=== PATIENT | male | born 1960 | race Caucasian/White ===

== ENCOUNTER 2017-01-23 20:11 | Inpatient (IN) | payer MEDICAID, OTHER ==
[2017-01-23 20:11] VITALS: O2SAT 100
[~2017-01-23 20:11] MED LIST: PROPOFOL 200 MG/20 ML AMP IV ONE; SODIUM CHLOR 0.9% 1000 ML INJ 3,000 ML IV ONE
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
[2017-01-23 20:37] LABS: AUTOMATED NEUTROPHIL # 7.3 TH/MM3 (1.8-7.7); BASOPHIL # 0.1 TH/MM3 (0-0.2); BASOPHIL % 0.5 % (0.0-2.0); EOSINOPHIL # 0.2 TH/MM3 (0-0.4); EOSINOPHIL % 1.4 % (0.0-4.0); HEMATOCRIT 41.4 % (39.0-51.0); HEMO FLAGS DIFF FINAL; LYMPH % 20.3 % (9.0-44.0); LYMPHOCYTE # 2.1 TH/MM3 (1.0-4.8); MEAN CORPUSCULAR HEMOGLOBIN 28.8 PG (27.0-34.0); MEAN CORPUSCULAR HGB CONC 33.9 % (32.0-36.0); MONO % 8.5 % (0.0-8.0); NEUT % 69.3 % (16.0-70.0); PLATELET COUNT 215 TH/MM3 (150-450); RED BLOOD COUNT 4.86 MIL/MM3 (4.50-5.90); RED CELL DISTRIBUTION WIDTH 14.4 % (11.6-17.2); WHITE BLOOD COUNT 10.5 TH/MM3 (4.0-11.0)
[2017-01-23 20:40] VITALS: O2SAT 100
[2017-01-23 20:40] LABS: I-STAT POTASSIUM 2.7 MMOL/L (3.5-4.9); I-STAT SODIUM 141 MMOL/L (138-146)
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
[2017-01-23 20:45] VITALS: BP 131/94; PULSE 82; RESP 23; O2SAT 100; O2SAT 95
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
[2017-01-23 20:49] LABS: APTT (PATIENT) 24.3 SEC (24.3-30.1); INTERNATIONAL NORMALIZED RATIO 1.1 RATIO; PROTHROMBIN TIME - PATIENT 11.8 SEC (9.8-11.6)
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
[2017-01-23] MEDS ORDERED: THROMBIN (TOPICAL) 5,000 UNIT VIAL ONE ×2 (20:55→21:14)
[2017-01-23] MEDS ORDERED: GENTAMICIN SULFATE 80 MG/2 ML VIAL ONE (20:55)
[2017-01-23] MEDS ORDERED: GELFOAM SIZE 100 ONE (20:55)
[2017-01-23] MEDS ORDERED: LIDOCAINE 1%/EPINEPHrine 1:100,000 SOLN 20 ML VIAL ONE (20:56)
[2017-01-23] MEDS ORDERED: PROPOFOL 1000 MG/100 ML INJ 100 ML ONE (20:59)
[2017-01-23] MEDS ORDERED: MANNITOL INJ 50 ML ONE (20:59)
[2017-01-23 21:00] VITALS: BP 142/104; PULSE 90; RESP 31; TEMP 95.7; O2SAT 100
[2017-01-23 21:10] VITALS: O2SAT 100
[2017-01-23] MEDS ORDERED: SODIUM CHLOR 0.9% 1000 ML INJ 1,000 ML IV SCH (21:15)
[2017-01-23] MEDS ORDERED: MISCELLANEOUS NURSING INFORMATION XX SCH (21:15)
[2017-01-23] MEDS ORDERED: CHLORHEXIDINE GLUCONATE 2 % 1 PACK (2 CLOTHS) TOP PRN (21:15)
[2017-01-23] MEDS ORDERED: ENALAPRILAT 1.25 MG/ML VIAL IV PRN (21:15)
[2017-01-23] MEDS ORDERED: SODIUM CHLORIDE 0.9% FLUSH 10 ML FLUSH IV FLUSH PRN ×2 (21:15→21:30)
[2017-01-23] MEDS ORDERED: ceFAZolin INJ 1,000 MG VIAL ONE (21:21)
[2017-01-23] MEDS ORDERED: PROPOFOL 1000 MG/100 ML INJ 100 ML IV SCH (21:30)
[2017-01-23] MEDS ORDERED: DOPamine INJ PREMIX 500 ML IV SCH (21:30)
[2017-01-23] MEDS ORDERED: LORazepam 2 MG/ML VIAL IVP PRN (21:30)
[2017-01-23] MEDS ORDERED: MAGNESIUM SULFATE INJ 2 GM in SODIUM CHLORIDE 0.9% INJ 100 ML IV PRN (21:30)
[2017-01-23] MEDS ORDERED: ONDANSETRON HCL 4 MG/2 ML VIAL IV PRN (21:30)
[2017-01-23] MEDS ORDERED: TERBUTALINE INJ 1 MG/ML AMP SQ PRN (21:30)
[2017-01-23] MEDS ORDERED: ACETAMINOPHEN 650 MG/20.3 ML UDC NG PRN (21:30)
[2017-01-23] MEDS ORDERED: LABETALOL HCL 100 MG/20 ML VIAL IV PRN (21:30)
[2017-01-23] MEDS ORDERED: cloNIDine HCL 0.1 MG TAB PO PRN (21:30)
[2017-01-23] MEDS ORDERED: CALCIUM GLUCONATE INJ 1 GM in SODIUM CHLORIDE 0.9% INJ 100 ML IV PRN (21:30)
[2017-01-23] MEDS ORDERED: fentaNYL CITRATE 250 MCG/5 ML AMP ONE (21:34)
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
[2017-01-23] MEDS ORDERED: MAGNESIUM SULFATE INJ 2 GM in SODIUM CHLORIDE 0.9% INJ 96 ML IV PRN (22:00)
[2017-01-23] MEDS ORDERED: MAGNESIUM OXIDE 400 MG TAB PO PRN (22:00)
[2017-01-23] MEDS ORDERED: MAGNESIUM SULFATE INJ 4 GM in SODIUM CHLORIDE 0.9% INJ 92 ML IV PRN (22:00)
[2017-01-23] MEDS ORDERED: POTASSIUM CHLOR 20 MEQ PREMIX 100 ML IV PRN (22:00)
[2017-01-23] MEDS ORDERED: POTASSIUM CHLOR 40 MEQ PREMIX 100 ML IV PRN ×2 (22:00)
[2017-01-23] MEDS ORDERED: POTASSIUM CHLORIDE 25 MEQ EFFERVESCENT TAB PO PRN (22:00)
[2017-01-23] MEDS ORDERED: POTASSIUM PHOSPHATE MONOBASIC 500 MG TAB PO PRN (22:00)
[2017-01-23] MEDS ORDERED: POTASSIUM PHOSPHATE INJ 30 MMOL in SODIUM CHLOR 0.9% 250 ML INJ 250 ML IV PRN (22:00)
[2017-01-23] MEDS ORDERED: GLUCAGON 1 MG/ML VIAL OTHER PRN (22:00)
[2017-01-23] MEDS ORDERED: POTASSIUM PHOSPHATE MONOBASIC 500 MG TAB PO/TUBE PRN (22:00)
[2017-01-23] MEDS ORDERED: SODIUM PHOSPHATE INJ 30 MMOL in SODIUM CHLOR 0.9% 250 ML INJ 240 ML IV PRN (22:00)
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
[2017-01-23 22:22] LABS: BLOOD GAS BASE EXCESS -5.3 mmol/L (-2-2); BLOOD GAS CARBOXYHEMOGLOBIN 4.3 % (0-4); BLOOD GAS HCO3 19 mmol/L (22-26); BLOOD GAS METHEMOGLOBIN 1.3 % (0-2); BLOOD GAS O2 HGB SATURATION 93 % (90-100); BLOOD GAS OXYGEN CONTENT 15.1 Vol % (12.0-20.0); BLOOD GAS PCO2 35 mmHg (38-42); BLOOD GAS PO2 130 mmHg (61-120); BLOOD GAS TOTAL HGB 11.4 G/DL (12.0-16.0); TEMP CORR TO 98.6
[2017-01-23 22:23] LABS: CRITICAL VALUE NO; FIO2 60 %; OXYGEN DEVICE VENTILATOR; VENT SETTINGS OR SETTINGS
[2017-01-23 22:24] LABS: DRAW SITE ALINE; STAT YES; ULNAR PULSE PRESENT
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
[2017-01-24] VITALS (17 sets, daily range): BP systolic 104–149; BP diastolic 64–85; PULSE 86–109; RESP 16–34; TEMP 96.4–100.6; O2SAT 98–100
[2017-01-24 00:05] LABS: FREE T3 2.92 PG/ML (2.18-3.98); FREE T4 1.37 NG/DL (0.76-1.46)
[2017-01-24 00:57] LABS: BLOOD GAS BASE EXCESS -4.9 mmol/L (-2-2); BLOOD GAS CARBOXYHEMOGLOBIN 1.8 % (0-4); BLOOD GAS HCO3 20 mmol/L (22-26); BLOOD GAS METHEMOGLOBIN 1.1 % (0-2); BLOOD GAS O2 HGB SATURATION 97 % (90-100); BLOOD GAS OXYGEN CONTENT 17.2 Vol % (12.0-20.0); BLOOD GAS PCO2 39 mmHg (38-42); BLOOD GAS PO2 350 mmHg (61-120); CRITICAL VALUE NO; DRAW SITE ART LINE; FIO2 100 %; OXYGEN DEVICE VENTILATOR; STAT NO; TEMP CORR TO 98.6; VENT SETTINGS PRVC/AC
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
[2017-01-24 01:34] LABS: AMPHETAMINE, URINE NEG (NEG); BARBITURATES, URINE NEG (NEG); COCAINE, URINE NEG (NEG)
[2017-01-24 01:38] LABS: BLOOD, URINE NEG (NEG); COMMENT (UR) CATH-CULT NOT IND; CULTURE IF INDICATED CATH CULTURE NOT IND; GLUCOSE,URINE TRACE mg/dL (NEG); HYALINE CAST, URINE 3 /lpf (RARE); KETONE, URINE 40 mg/dL (NEG); MUCUS URINE FEW /lpf (OCC); NITRITE,URINE NEG (NEG); PH, URINE 5.5 (5.0-8.5); URINE COLOR YELLOW (YELLW/STRAW)
[2017-01-24] MEDS ORDERED: MANNITOL 12.5 GM/50 ML VIAL IV ONE (02:30)
[2017-01-24] MEDS: PROPOFOL 1000 MG/100 ML INJ 100 ML IV SCH ×3 (02:35→22:34)
--- NOTE | 2017-01-24 03:32 | PD.PROCEDR ---
Procedure Note Procedure DATE: 01/24/17 CENTRAL LINE PLACEMENT: Left subclavian vein. INDICATION: Central venous access CONSENT Informed consent for procedure was obtained from patient's after discussion of risks, benefits, alternatives. DESCRIPTION OF THE PROCEDURE The patient was placed in supine position, Trendelenburg. The skin was cleansed with Chloraprep 3. Additional barrier precautions included large sterile drape, sterile gloves, sterile gown, face mask, and hat. 1 % lidocaine was used for local anesthesia. Under direct ultrasound guidance and on single attempt, the vein was accessed with an introducer needle. The guide wire was advanced and the tract was dilated. Using Seldinger technique a 7 [place] 20 cm antimicrobial coated triple-lumen catheter was advanced to a depth of 18 centimeters. The guide wire was removed. All ports had good return of dark venous blood and flushed easily with saline. The central line was secured with 2.0 silk. A sterile dressing with antibiotic disc was applied. ESTIMATED BLOOD LOSS: Minimal COMPLICATIONS: No apparent complications. STAT chest x-ray is pending Tamika Mary MD Jan 24, 2017 03:32
[2017-01-24] MEDS: fentaNYL DRIP 250 ML IV SCH (03:41)
[2017-01-24] MEDS: PANTOPRAZOLE SODIUM 40 MG VIAL IV PUSH SCH (03:41)
[2017-01-24] MEDS: INSULIN ASPART SUPPLEMENTAL SCALE SQ SCH ×4 (04:00→22:00)
[2017-01-24] MEDS: CHLORHEXIDINE GLUCONATE 2 % 1 PACK (2 CLOTHS) TOP SCH (04:00)
--- NOTE | 2017-01-24 04:23 | RADRPT ---
EXAM DATE/TIME: 01/24/2017 03:44 [place] COMPARISON: CHEST SINGLE AP, January 23, 2017, 20:03. INDICATIONS : Shortness of breath. MEDICAL HISTORY : None. SURGICAL HISTORY : None. ENCOUNTER: Initial ACUITY: 1 day PAIN SCORE: 0/10 LOCATION: Bilateral chest FINDINGS: A single view of the chest demonstrates the lungs to be symmetrically aerated without evidence of mas s, infiltrate or effusion. There is mild platelike atelectasis in the left lung base. The cardiomedi astinal contours are unremarkable. Osseous structures are stable. Left central line in place. No pne umothorax. CONCLUSION: 1. Mild left lower lung atelectasis. 2. Otherwise, lungs are clear and well-aerated. Javier Wilkinson MD on January 24, 2017 at 4:20 Board Certified Radiologist. This report was verified electronically.
[2017-01-24 04:37] LABS: APTT (PATIENT) 26.5 SEC (24.3-30.1); PROTHROMBIN TIME - PATIENT 11.4 SEC (9.8-11.6)
[2017-01-24 04:48] LABS: AUTOMATED NEUTROPHIL # 24.4 TH/MM3 (1.8-7.7); BASOPHIL # 0.1 TH/MM3 (0-0.2); BASOPHIL % 0.3 % (0.0-2.0); EOSINOPHIL % 0.1 % (0.0-4.0); HEMATOCRIT 37.1 % (39.0-51.0); HEMO FLAGS DIFF FINAL; LYMPH % 7.1 % (9.0-44.0); MEAN CELL VOLUME 84.5 FL (80.0-100.0); MEAN CORPUSCULAR HEMOGLOBIN 28.6 PG (27.0-34.0); MEAN CORPUSCULAR HGB CONC 33.8 % (32.0-36.0); MONO % 5.8 % (0.0-8.0); NEUT % 86.7 % (16.0-70.0); PLATELET COUNT 207 TH/MM3 (150-450); RED CELL DISTRIBUTION WIDTH 14.3 % (11.6-17.2); WHITE BLOOD COUNT 28.1 TH/MM3 (4.0-11.0)
[2017-01-24 04:57] LABS: CALCIUM-PROTEIN CORRECTED 8.1 MG/DL (8.5-10.1); MAGNESIUM 1.8 MG/DL (1.5-2.5); POTASSIUM 3.9 MEQ/L (3.5-5.1); TOTAL BILIRUBIN ADULT 0.9 MG/DL (0.2-1.0)
[2017-01-24] MEDS: 3% SALINE INJ 500 ML IV SCH (04:57)
[2017-01-24 05:07] LABS: BLOOD GAS BASE EXCESS -4.4 mmol/L (-2-2); BLOOD GAS CARBOXYHEMOGLOBIN 1.3 % (0-4); BLOOD GAS HCO3 20 mmol/L (22-26); BLOOD GAS METHEMOGLOBIN 0.9 % (0-2); BLOOD GAS O2 HGB SATURATION 97 % (90-100); BLOOD GAS PCO2 34 mmHg (38-42); BLOOD GAS PO2 132 mmHg (61-120); BLOOD GAS TOTAL HGB 12.4 G/DL (12.0-16.0); CRITICAL VALUE NO; DRAW SITE ART LINE; FIO2 40 %; OXYGEN DEVICE VENTILATOR; TEMP CORR TO 98.6; VENT SETTINGS PRVC/AC
[2017-01-24 05:08] LABS: STAT NO
[2017-01-24] MEDS: levETIRAcetam INJ 500 MG in SODIUM CHLORIDE 0.9% INJ 100 ML IV SCH ×3 (05:30→22:33)
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
[2017-01-24] MEDS ORDERED: PANTOPRAZOLE SOD 40 MG DELAYED RELEASE TAB PO SCH (09:00)
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
[2017-01-24 12:09] LABS: ACETAMINOPHEN 2.7 MCG/ML (10.0-30.0)
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
[2017-01-24] MEDS: POTASSIUM CHLOR 20 MEQ PREMIX 100 ML IV PRN (20:17)
[2017-01-24] MEDS: CHLORHEXIDINE 0.12% (ORAL KIT) 15 ML CUP MT SCH (22:46)
[2017-01-24] MEDS: SODIUM CHLORIDE 0.9% FLUSH 10 ML FLUSH IV FLUSH SCH (22:46)
[2017-01-25] VITALS (18 sets, daily range): BP systolic 114–146; BP diastolic 61–75; PULSE 69–94; RESP 16–21; TEMP 97.7–100.4; O2SAT 99–100
[2017-01-25] MEDS: NS + KCL 20 MEQ INJ 1,000 ML IV SCH ×2 (00:59→16:23)
[2017-01-25 01:25] LABS: POTASSIUM 4.4 MEQ/L (3.5-5.1)
[2017-01-25] MEDS: PANTOPRAZOLE SODIUM 40 MG VIAL IV PUSH SCH (02:51)
[2017-01-25] MEDS: INSULIN ASPART SUPPLEMENTAL SCALE SQ SCH ×4 (03:49→22:00)
[2017-01-25] MEDS: 3% SALINE INJ 500 ML IV SCH (03:49)
[2017-01-25] MEDS: CHLORHEXIDINE GLUCONATE 2 % 1 PACK (2 CLOTHS) TOP SCH (04:00)
[2017-01-25 05:12] LABS: AUTOMATED NEUTROPHIL # 16.7 TH/MM3 (1.8-7.7); BASOPHIL % 0.1 % (0.0-2.0); HEMATOCRIT 28.1 % (39.0-51.0); HEMO FLAGS DIFF FINAL; LYMPH % 6.7 % (9.0-44.0); LYMPHOCYTE # 1.4 TH/MM3 (1.0-4.8); MEAN CELL VOLUME 85.8 FL (80.0-100.0); MEAN CORPUSCULAR HGB CONC 33.9 % (32.0-36.0); MONO % 10.5 % (0.0-8.0); NEUT % 82.7 % (16.0-70.0); PLATELET COUNT 145 TH/MM3 (150-450); RED BLOOD COUNT 3.28 MIL/MM3 (4.50-5.90); RED CELL DISTRIBUTION WIDTH 14.8 % (11.6-17.2); WHITE BLOOD COUNT 20.2 TH/MM3 (4.0-11.0)
[2017-01-25 05:44] LABS: BLOOD GAS CARBOXYHEMOGLOBIN 1.1 % (0-4); BLOOD GAS HCO3 21 mmol/L (22-26); BLOOD GAS O2 HGB SATURATION 97 % (90-100); BLOOD GAS OXYGEN CONTENT 13.4 Vol % (12.0-20.0); BLOOD GAS PCO2 38 mmHg (38-42); BLOOD GAS PO2 154 mmHg (61-120); BLOOD GAS TOTAL HGB 9.6 G/DL (12.0-16.0); CRITICAL VALUE NO; OXYGEN DEVICE VENTILATOR; TEMP CORR TO 98.6
[2017-01-25 05:45] LABS: DRAW SITE ART LINE; FIO2 40 %; STAT NO; ULNAR PULSE PRESENT; VENT SETTINGS PRVC16/500/0.9/+5
[2017-01-25] MEDS: PROPOFOL 1000 MG/100 ML INJ 100 ML IV SCH ×3 (05:56→22:10)
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
[2017-01-25] MEDS: METOPROLOL TARTRATE 5 MG/5 ML VIAL IV PUSH SCH ×3 (10:18→22:11)
[2017-01-25] MEDS: CHLORHEXIDINE 0.12% (ORAL KIT) 15 ML CUP MT SCH ×2 (10:18→20:00)
[2017-01-25] MEDS: levETIRAcetam INJ 500 MG in SODIUM CHLORIDE 0.9% INJ 100 ML IV SCH (10:21)
[2017-01-25] MEDS: SODIUM CHLORIDE 0.9% FLUSH 10 ML FLUSH IV FLUSH SCH ×2 (10:21→22:10)
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
[2017-01-25] MEDS: MIDAZOLAM 100 MG/NS 100 ML DRIP Premix IV SCH (13:55)
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
--- NOTE | 2017-01-25 15:07 | EKG ---
Date Performed: 01/25/2017 Time Performed: 10:51:51 PTAGE: 56 years EKG: Sinus rhythm WITH SINUS ARRHYTHMIA NORMAL ECG NO PREVIOUS TRACING DOCTOR: Sona Greer Interpretating Date/Time 01/25/2017 14:59:41
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
[2017-01-25] MEDS: PHENYTOIN INJ 100 MG/2 ML VIAL IV SCH ×2 (16:22→23:10)
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
[2017-01-25 19:27] LABS: ALKALINE PHOSPHATASE 51 U/L (45-117); ALT (GPT) 16 U/L (12-78); ANION GAP 7 MEQ/L (5-15); AST (GOT) 19 U/L (15-37); BICARBONATE 23.1 MEQ/L (21.0-32.0); BLOOD UREA NITROGEN 14 MG/DL (7-18); CHLORIDE 122 MEQ/L (98-107); GLOMERULAR FILTRATION RATE 114 ML/MIN (>89); POTASSIUM 4.2 MEQ/L (3.5-5.1); SODIUM (NA) 152 MEQ/L (136-145); TOTAL BILIRUBIN ADULT 0.5 MG/DL (0.2-1.0)
[2017-01-25] MEDS: fentaNYL DRIP 250 ML IV SCH (21:07)
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
[2017-01-25] MEDS: levETIRAcetam 1000 MG INJ 100 ML IV SCH (22:12)
[2017-01-26] VITALS (20 sets, daily range): BP systolic 96–122; BP diastolic 49–56; PULSE 79–90; RESP 9–15; TEMP 97.5–98.8; O2SAT 0–100
[2017-01-26] MEDS: PANTOPRAZOLE SODIUM 40 MG VIAL IV PUSH SCH (02:00)
[2017-01-26] MEDS: CHLORHEXIDINE GLUCONATE 2 % 1 PACK (2 CLOTHS) TOP SCH (04:00)
[2017-01-26] MEDS: INSULIN ASPART SUPPLEMENTAL SCALE SQ SCH ×4 (04:00→22:00)
[2017-01-26] MEDS: MIDAZOLAM 100 MG/NS 100 ML DRIP Premix IV SCH ×2 (04:20→16:51)
[2017-01-26] MEDS: 3% SALINE INJ 500 ML IV SCH (04:20)
[2017-01-26] MEDS: NS + KCL 20 MEQ INJ 1,000 ML IV SCH ×2 (04:20→20:25)
[2017-01-26] MEDS: PROPOFOL 1000 MG/100 ML INJ 100 ML IV SCH ×2 (04:28→18:42)
[2017-01-26 05:49] LABS: AUTOMATED NEUTROPHIL # 8.9 TH/MM3 (1.8-7.7); BASOPHIL % 0.1 % (0.0-2.0); EOSINOPHIL % 0.1 % (0.0-4.0); HEMATOCRIT 23.6 % (39.0-51.0); HEMO FLAGS DIFF FINAL; LYMPH % 10.1 % (9.0-44.0); LYMPHOCYTE # 1.1 TH/MM3 (1.0-4.8); MEAN CELL VOLUME 87.1 FL (80.0-100.0); MEAN CORPUSCULAR HEMOGLOBIN 29.3 PG (27.0-34.0); MEAN CORPUSCULAR HGB CONC 33.7 % (32.0-36.0); NEUT % 81.7 % (16.0-70.0); PLATELET COUNT 134 TH/MM3 (150-450); RED BLOOD COUNT 2.71 MIL/MM3 (4.50-5.90); RED CELL DISTRIBUTION WIDTH 14.9 % (11.6-17.2); WHITE BLOOD COUNT 10.9 TH/MM3 (4.0-11.0)
[2017-01-26] MEDS: METOPROLOL TARTRATE 5 MG/5 ML VIAL IV PUSH SCH ×3 (06:00→22:14)
[2017-01-26 07:26] LABS: SODIUM (NA) 156 MEQ/L (136-145)
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
[2017-01-26] MEDS: CHLORHEXIDINE 0.12% (ORAL KIT) 15 ML CUP MT SCH ×2 (08:15→20:00)
[2017-01-26] MEDS: PHENYTOIN INJ 100 MG/2 ML VIAL IV SCH ×3 (08:15→23:10)
[2017-01-26] MEDS: SODIUM CHLORIDE 0.9% FLUSH 10 ML FLUSH IV FLUSH SCH ×2 (08:16→20:25)
[2017-01-26 08:35] LABS: ALKALINE PHOSPHATASE 43 U/L (45-117); ALT (GPT) 15 U/L (12-78); ANION GAP 6 MEQ/L (5-15); AST (GOT) 18 U/L (15-37); BICARBONATE 24.3 MEQ/L (21.0-32.0); BLOOD UREA NITROGEN 12 MG/DL (7-18); CHLORIDE 126 MEQ/L (98-107); GLOMERULAR FILTRATION RATE 112 ML/MIN (>89); POTASSIUM 3.7 MEQ/L (3.5-5.1); TOTAL BILIRUBIN ADULT 0.4 MG/DL (0.2-1.0)
[2017-01-26] MEDS ORDERED: Custom Consult Pharmacy 1 EA OTHER SCH (09:45)
[2017-01-26] MEDS: levETIRAcetam 1000 MG INJ 100 ML IV SCH ×2 (10:34→20:24)
[2017-01-26] MEDS: DEXTROSE 50% IN WATER 50 ML SYRINGE IV PRN (10:35)
[2017-01-26 10:36] LABS: BLOOD GAS CARBOXYHEMOGLOBIN 0.9 % (0-4); BLOOD GAS HCO3 22 mmol/L (22-26); BLOOD GAS METHEMOGLOBIN 0.9 % (0-2); BLOOD GAS O2 HGB SATURATION 97 % (90-100); BLOOD GAS OXYGEN CONTENT 20.4 Vol % (12.0-20.0); BLOOD GAS PCO2 41 mmHg (38-42); BLOOD GAS PO2 136 mmHg (61-120); BLOOD GAS TOTAL HGB 14.9 G/DL (12.0-16.0); TEMP CORR TO 98.6
[2017-01-26 10:37] LABS: CRITICAL VALUE NO; OXYGEN DEVICE VENTILATOR; VENT SETTINGS PRVC/AC 12/500/+5/.9
[2017-01-26 10:38] LABS: DRAW SITE ART LINE; FIO2 40 %; NUMBER OF ARTERIAL PUNCTURES 0; STAT NO; ULNAR PULSE Y
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
[2017-01-26] MEDS: fentaNYL DRIP 250 ML IV SCH ×3 (16:51→22:13)
[2017-01-27] VITALS (18 sets, daily range): BP systolic 112–135; BP diastolic 55–67; PULSE 7–82; RESP 12–16; TEMP 96.7–98.6; O2SAT 100
[2017-01-27] MEDS: PANTOPRAZOLE SODIUM 40 MG VIAL IV PUSH SCH (01:18)
[2017-01-27] MEDS: CHLORHEXIDINE GLUCONATE 2 % 1 PACK (2 CLOTHS) TOP SCH (04:00)
[2017-01-27] MEDS: INSULIN ASPART SUPPLEMENTAL SCALE SQ SCH ×5 (04:00→20:00)
[2017-01-27 05:41] LABS: AUTOMATED NEUTROPHIL # 5.2 TH/MM3 (1.8-7.7); BASOPHIL % 0.4 % (0.0-2.0); EOSINOPHIL # 0.1 TH/MM3 (0-0.4); EOSINOPHIL % 1.5 % (0.0-4.0); HEMATOCRIT 24.2 % (39.0-51.0); HEMO FLAGS DIFF FINAL; LYMPH % 14.8 % (9.0-44.0); LYMPHOCYTE # 1.1 TH/MM3 (1.0-4.8); MEAN CELL VOLUME 85.8 FL (80.0-100.0); MEAN CORPUSCULAR HEMOGLOBIN 28.5 PG (27.0-34.0); MEAN CORPUSCULAR HGB CONC 33.2 % (32.0-36.0); MONO % 11.1 % (0.0-8.0); NEUT % 72.2 % (16.0-70.0); PLATELET COUNT 153 TH/MM3 (150-450); RED BLOOD COUNT 2.82 MIL/MM3 (4.50-5.90); RED CELL DISTRIBUTION WIDTH 15.1 % (11.6-17.2); WHITE BLOOD COUNT 7.3 TH/MM3 (4.0-11.0)
[2017-01-27] MEDS: METOPROLOL TARTRATE 5 MG/5 ML VIAL IV PUSH SCH ×3 (06:14→22:00)
[2017-01-27] MEDS: DEXTROSE 50% IN WATER 50 ML SYRINGE IV PRN (06:14)
[2017-01-27 06:21] LABS: SODIUM (NA) 158 MEQ/L (136-145)
[2017-01-27] MEDS: PROPOFOL 1000 MG/100 ML INJ 100 ML IV SCH ×2 (07:09→20:12)
[2017-01-27] MEDS: CHLORHEXIDINE 0.12% (ORAL KIT) 15 ML CUP MT SCH ×2 (08:14→20:28)
[2017-01-27] MEDS: PHENYTOIN INJ 100 MG/2 ML VIAL IV SCH ×2 (08:14→16:30)
[2017-01-27] MEDS: SODIUM CHLORIDE 0.9% FLUSH 10 ML FLUSH IV FLUSH SCH ×2 (08:15→20:28)
[2017-01-27] MEDS: levETIRAcetam 1000 MG INJ 100 ML IV SCH ×2 (09:58→22:22)
[2017-01-27 10:45] LABS: ALKALINE PHOSPHATASE 48 U/L (45-117); ALT (GPT) 23 U/L (12-78); ANION GAP 7 MEQ/L (5-15); AST (GOT) 24 U/L (15-37); BICARBONATE 23.8 MEQ/L (21.0-32.0); BLOOD UREA NITROGEN 14 MG/DL (7-18); CHLORIDE 127 MEQ/L (98-107); GLOMERULAR FILTRATION RATE 133 ML/MIN (>89); POTASSIUM 3.5 MEQ/L (3.5-5.1); TOTAL BILIRUBIN ADULT 0.5 MG/DL (0.2-1.0)
[2017-01-27] MEDS: FUROSEMIDE 40 MG/4 ML VIAL IV PUSH SCH (11:38)
[2017-01-27] MEDS: DEXT 5%-NACL 0.9% 1000 ML INJ 1,000 ML IV SCH (11:39)
[2017-01-27] MEDS: BISACODYL 10 MG SUPP RECTAL SCH (11:39)
[2017-01-27] MEDS: POTASSIUM CHLOR 20 MEQ PREMIX 100 ML IV PRN ×4 (11:39→22:22)
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
[2017-01-27 18:51] LABS: POTASSIUM 3.4 MEQ/L (3.5-5.1)
[2017-01-27] MEDS: MIDAZOLAM 100 MG/NS 100 ML DRIP Premix IV SCH (20:18)
[2017-01-27] MEDS: fentaNYL DRIP 250 ML IV SCH (20:19)
[2017-01-27] MEDS: RESP: ALBUTEROL 2.5 MG/3 ML NEB (PRN) NEB (20:57)
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
[2017-01-28] VITALS (18 sets, daily range): BP systolic 122–135; BP diastolic 65–71; PULSE 68–82; RESP 15–16; TEMP 98.3–99.1; O2SAT 100
[2017-01-28] MEDS: PHENYTOIN INJ 100 MG/2 ML VIAL IV SCH ×3 (00:05→16:25)
[2017-01-28] MEDS: PANTOPRAZOLE SODIUM 40 MG VIAL IV PUSH SCH (01:28)
[2017-01-28] MEDS: RESP: ALBUTEROL 2.5 MG/3 ML NEB (PRN) NEB (03:02)
[2017-01-28] MEDS: INSULIN ASPART SUPPLEMENTAL SCALE SQ SCH ×6 (04:00→20:00)
[2017-01-28] MEDS: CHLORHEXIDINE GLUCONATE 2 % 1 PACK (2 CLOTHS) TOP SCH (04:40)
[2017-01-28 04:47] LABS: AUTOMATED NEUTROPHIL # 5.6 TH/MM3 (1.8-7.7); BASOPHIL % 0.5 % (0.0-2.0); EOSINOPHIL # 0.2 TH/MM3 (0-0.4); EOSINOPHIL % 2.4 % (0.0-4.0); HEMATOCRIT 25.4 % (39.0-51.0); HEMO FLAGS DIFF FINAL; LYMPH % 17.5 % (9.0-44.0); LYMPHOCYTE # 1.5 TH/MM3 (1.0-4.8); MEAN CELL VOLUME 86.4 FL (80.0-100.0); MEAN CORPUSCULAR HEMOGLOBIN 28.6 PG (27.0-34.0); MEAN CORPUSCULAR HGB CONC 33.1 % (32.0-36.0); MONO % 12.6 % (0.0-8.0); PLATELET COUNT 176 TH/MM3 (150-450); RED BLOOD COUNT 2.94 MIL/MM3 (4.50-5.90); WHITE BLOOD COUNT 8.4 TH/MM3 (4.0-11.0)
[2017-01-28 05:10] LABS: ANION GAP 5 MEQ/L (5-15); AST (GOT) 20 U/L (15-37); BICARBONATE 28.8 MEQ/L (21.0-32.0); BLOOD UREA NITROGEN 15 MG/DL (7-18); CHLORIDE 121 MEQ/L (98-107); GLOMERULAR FILTRATION RATE 114 ML/MIN (>89); POTASSIUM 3.5 MEQ/L (3.5-5.1); SODIUM (NA) 155 MEQ/L (136-145)
[2017-01-28 05:11] LABS: ALT (GPT) 26 U/L (12-78)
[2017-01-28 05:14] LABS: ALKALINE PHOSPHATASE 52 U/L (45-117); TOTAL BILIRUBIN ADULT 0.7 MG/DL (0.2-1.0)
[2017-01-28] MEDS: METOPROLOL TARTRATE 5 MG/5 ML VIAL IV PUSH SCH ×3 (06:08→23:07)
[2017-01-28] MEDS: DEXT 5%-NACL 0.9% 1000 ML INJ 1,000 ML IV SCH (06:08)
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
[2017-01-28] MEDS: FUROSEMIDE 40 MG/4 ML VIAL IV PUSH SCH (08:47)
[2017-01-28] MEDS: BISACODYL 10 MG SUPP RECTAL SCH (08:47)
[2017-01-28] MEDS: levETIRAcetam 1000 MG INJ 100 ML IV SCH ×2 (08:48→23:07)
[2017-01-28] MEDS: CHLORHEXIDINE 0.12% (ORAL KIT) 15 ML CUP MT SCH ×2 (08:50→20:12)
[2017-01-28] MEDS: SODIUM CHLORIDE 0.9% FLUSH 10 ML FLUSH IV FLUSH SCH ×2 (08:51→20:12)
[2017-01-28] MEDS: POTASSIUM CHLOR 20 MEQ PREMIX 100 ML IV PRN ×3 (10:15→20:07)
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
[2017-01-28] MEDS: MIDAZOLAM 100 MG/NS 100 ML DRIP Premix IV SCH (14:34)
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
[2017-01-28] MEDS ORDERED: SODIUM CHLORIDE 0.9% IV ONE (18:00)
[2017-01-28] MEDS ORDERED: PHENYTOIN IV ONE (18:00)
[2017-01-28] MEDS: fentaNYL DRIP 250 ML IV SCH (19:47)
[2017-01-29] VITALS (16 sets, daily range): BP systolic 101–140; BP diastolic 55–74; PULSE 68–94; RESP 14–31; TEMP 97.9–100.9; O2SAT 99–100
[2017-01-29] MEDS: PHENYTOIN INJ 100 MG/2 ML VIAL IV SCH ×3 (00:03→20:11)
[2017-01-29] MEDS: PANTOPRAZOLE SODIUM 40 MG VIAL IV PUSH SCH (02:07)
[2017-01-29] MEDS: DEXT 5%-NACL 0.9% 1000 ML INJ 1,000 ML IV SCH ×2 (02:07→21:28)
[2017-01-29 03:54] LABS: AUTOMATED NEUTROPHIL # 6.7 TH/MM3 (1.8-7.7); BASOPHIL % 0.5 % (0.0-2.0); EOSINOPHIL # 0.2 TH/MM3 (0-0.4); EOSINOPHIL % 1.9 % (0.0-4.0); HEMATOCRIT 24.9 % (39.0-51.0); HEMO FLAGS DIFF FINAL; LYMPH % 12.7 % (9.0-44.0); LYMPHOCYTE # 1.2 TH/MM3 (1.0-4.8); MEAN CELL VOLUME 84.1 FL (80.0-100.0); MEAN CORPUSCULAR HEMOGLOBIN 29.5 PG (27.0-34.0); MONO % 11.7 % (0.0-8.0); NEUT % 73.2 % (16.0-70.0); PLATELET COUNT 202 TH/MM3 (150-450); RED BLOOD COUNT 2.96 MIL/MM3 (4.50-5.90); RED CELL DISTRIBUTION WIDTH 14.8 % (11.6-17.2); WHITE BLOOD COUNT 9.2 TH/MM3 (4.0-11.0)
[2017-01-29] MEDS: INSULIN ASPART SUPPLEMENTAL SCALE SQ SCH ×7 (04:00→23:32)
[2017-01-29] MEDS: CHLORHEXIDINE GLUCONATE 2 % 1 PACK (2 CLOTHS) TOP SCH ×2 (04:09→19:33)
[2017-01-29 04:15] LABS: ALT (GPT) 25 U/L (12-78); ANION GAP 5 MEQ/L (5-15); AST (GOT) 22 U/L (15-37); BICARBONATE 30.9 MEQ/L (21.0-32.0); BLOOD UREA NITROGEN 16 MG/DL (7-18); CHLORIDE 117 MEQ/L (98-107); GLOMERULAR FILTRATION RATE 124 ML/MIN (>89); SODIUM (NA) 153 MEQ/L (136-145)
[2017-01-29 04:17] LABS: ALKALINE PHOSPHATASE 97 U/L (45-117); TOTAL BILIRUBIN ADULT 0.8 MG/DL (0.2-1.0)
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
[2017-01-29] MEDS: METOPROLOL TARTRATE 5 MG/5 ML VIAL IV PUSH SCH ×3 (05:13→20:55)
[2017-01-29 06:16] LABS: BLOOD GAS BASE EXCESS 4.1 mmol/L (-2-2); BLOOD GAS CARBOXYHEMOGLOBIN 1.4 % (0-4); BLOOD GAS HCO3 28 mmol/L (22-26); BLOOD GAS METHEMOGLOBIN 0.9 % (0-2); BLOOD GAS O2 HGB SATURATION 97 % (90-100); BLOOD GAS OXYGEN CONTENT 12.1 Vol % (12.0-20.0); BLOOD GAS PCO2 42 mmHg (38-42); BLOOD GAS PO2 134 mmHg (61-120); BLOOD GAS TOTAL HGB 8.7 G/DL (12.0-16.0); CRITICAL VALUE NO; OXYGEN DEVICE VENTILATOR; TEMP CORR TO 98.6
[2017-01-29 06:17] LABS: VENT SETTINGS PRVC
[2017-01-29 06:18] LABS: DRAW SITE ART LINE; STAT NO
[2017-01-29] MEDS: PROPOFOL 1000 MG/100 ML INJ 100 ML IV SCH (06:33)
[2017-01-29] MEDS: CHLORHEXIDINE 0.12% (ORAL KIT) 15 ML CUP MT SCH ×2 (08:12→20:13)
[2017-01-29] MEDS: SODIUM CHLORIDE 0.9% FLUSH 10 ML FLUSH IV FLUSH SCH ×2 (09:00→20:10)
[2017-01-29] MEDS: POTASSIUM CHLORIDE 25 MEQ EFFERVESCENT TAB NG SCH (09:00)
[2017-01-29] MEDS: FUROSEMIDE 40 MG/4 ML VIAL IV PUSH SCH (09:47)
[2017-01-29] MEDS: BISACODYL 10 MG SUPP RECTAL SCH (09:49)
[2017-01-29] MEDS: levETIRAcetam 1000 MG INJ 100 ML IV SCH ×2 (09:49→21:28)
[2017-01-29] MEDS: MIDAZOLAM 100 MG/NS 100 ML DRIP Premix IV SCH (10:30)
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
[2017-01-29] MEDS: fentaNYL DRIP 250 ML IV SCH (20:08)
[2017-01-29] MEDS: ACETAMINOPHEN 1000 MG/100 ML VIAL IV SCH (20:09)
[2017-01-30] VITALS (19 sets, daily range): BP systolic 103–131; BP diastolic 67–87; PULSE 72–103; RESP 13–22; TEMP 97.5–99; O2SAT 97–100
[2017-01-30] MEDS: ACETAMINOPHEN 1000 MG/100 ML VIAL IV SCH ×4 (01:57→20:26)
[2017-01-30] MEDS: PANTOPRAZOLE SODIUM 40 MG VIAL IV PUSH SCH (01:57)
[2017-01-30] MEDS: PROPOFOL 1000 MG/100 ML INJ 100 ML IV SCH (01:59)
[2017-01-30] MEDS: INSULIN ASPART SUPPLEMENTAL SCALE SQ SCH ×6 (03:41→23:40)
[2017-01-30] MEDS: METOPROLOL TARTRATE 5 MG/5 ML VIAL IV PUSH SCH ×3 (04:45→21:24)
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
[2017-01-30] MEDS: PHENYTOIN INJ 100 MG/2 ML VIAL IV SCH (08:14)
[2017-01-30] MEDS: SODIUM CHLORIDE 0.9% FLUSH 10 ML FLUSH IV FLUSH SCH ×2 (08:14→21:00)
[2017-01-30] MEDS: FUROSEMIDE 40 MG/4 ML VIAL IV PUSH SCH (08:14)
[2017-01-30] MEDS: CHLORHEXIDINE 0.12% (ORAL KIT) 15 ML CUP MT SCH ×2 (08:17→20:00)
[2017-01-30] MEDS: POTASSIUM CHLORIDE 25 MEQ EFFERVESCENT TAB NG SCH (08:17)
[2017-01-30] MEDS: BISACODYL 10 MG SUPP RECTAL SCH (08:17)
[2017-01-30] MEDS: levETIRAcetam 1000 MG INJ 100 ML IV SCH ×2 (09:10→21:24)
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
[2017-01-30] MEDS: MIDAZOLAM 100 MG/NS 100 ML DRIP Premix IV SCH (10:22)
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
[2017-01-30] MEDS: DEXT 5%-NACL 0.9% 1000 ML INJ 1,000 ML IV SCH (18:30)
[2017-01-31] VITALS (13 sets, daily range): BP systolic 118–150; BP diastolic 79–103; PULSE 92–105; RESP 16–32; TEMP 98.6–100.4; O2SAT 87–100
[2017-01-31] MEDS: ACETAMINOPHEN 1000 MG/100 ML VIAL IV SCH ×2 (01:08→08:51)
[2017-01-31] MEDS: PANTOPRAZOLE SODIUM 40 MG VIAL IV PUSH SCH (01:08)
[2017-01-31] MEDS: CHLORHEXIDINE GLUCONATE 2 % 1 PACK (2 CLOTHS) TOP SCH (04:00)
[2017-01-31] MEDS: INSULIN ASPART SUPPLEMENTAL SCALE SQ SCH ×3 (04:00→11:39)
[2017-01-31] MEDS: METOPROLOL TARTRATE 5 MG/5 ML VIAL IV PUSH SCH (05:42)
[2017-01-31] MEDS: SODIUM CHLORIDE 0.9% FLUSH 10 ML FLUSH IV FLUSH SCH ×2 (08:51→21:00)
[2017-01-31] MEDS: CHLORHEXIDINE 0.12% (ORAL KIT) 15 ML CUP MT SCH (08:51)
[2017-01-31] MEDS: BISACODYL 10 MG SUPP RECTAL SCH (09:00)
[2017-01-31] MEDS: POTASSIUM CHLORIDE 25 MEQ EFFERVESCENT TAB NG SCH (09:00)
[2017-01-31] MEDS: FUROSEMIDE 40 MG/4 ML VIAL IV PUSH SCH (10:03)
[2017-01-31] MEDS: PHENYTOIN INJ 100 MG/2 ML VIAL IV SCH ×2 (10:04→20:24)
[2017-01-31] MEDS: levETIRAcetam 1000 MG INJ 100 ML IV SCH ×2 (10:05→21:45)
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
[2017-01-31] MEDS ORDERED: MORPHINE SULFATE 8 MG/ML INJ IV PUSH ONE (13:45)
[2017-01-31] MEDS ORDERED: HYOSCYAMINE 0.125 MG TAB PO/SL ONE (13:45)
[2017-01-31] MEDS ORDERED: LORazepam 2 MG/ML VIAL IV ONE ×2 (13:45→14:00)
[2017-01-31] MEDS ORDERED: MORPHINE SULFATE 4 MG/ML INJ IV ONE (14:00)
[2017-01-31] MEDS ORDERED: fentaNYL DRIP 250 ML IV SCH (14:00)
[2017-01-31] MEDS ORDERED: FUROSEMIDE 20 MG/2 ML VIAL IV PRN (14:15)
[2017-01-31] MEDS ORDERED: ACETAMINOPHEN 650 MG SUPP RECTAL PRN (14:15)
[2017-01-31] MEDS ORDERED: LORazepam 2 MG/ML VIAL IVS PRN (14:15)
[2017-01-31] MEDS ORDERED: BISACODYL 10 MG SUPP RECTAL PRN (14:15)
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
[2017-01-31] MEDS: MORPHINE SULFATE 4 MG/ML INJ IV SCH ×2 (16:00→20:23)
[2017-01-31] MEDS: LORazepam 2 MG/ML VIAL IV SCH ×2 (16:00→20:23)
[2017-01-31] MEDS: fentaNYL DRIP 250 ML IV SCH (18:24)
[2017-01-31] MEDS: LORazepam 2 MG/ML VIAL IV PRN (22:42)
[2017-01-31] MEDS: MORPHINE SULFATE 4 MG/ML INJ IV PRN (22:43)
[2017-01-31] MEDS: MORPHINE SULFATE 8 MG/ML INJ IV PUSH PRN (23:19)
[2017-02-01] MEDS: LORazepam 2 MG/ML VIAL IV SCH ×4 (00:05→12:25)
[2017-02-01] MEDS: MORPHINE SULFATE 4 MG/ML INJ IV SCH ×4 (00:06→12:25)
[2017-02-01] MEDS: LORazepam 2 MG/ML VIAL IV PRN ×5 (00:33→05:55)
[2017-02-01] MEDS: MORPHINE SULFATE 8 MG/ML INJ IV PUSH PRN ×2 (00:34→05:10)
[2017-02-01] MEDS: MORPHINE SULFATE 4 MG/ML INJ IV PRN ×6 (01:05→14:51)
[2017-02-01 07:15] VITALS: BP 114/69; PULSE 94; RESP 24; TEMP 100.4; O2SAT 82
[2017-02-01] MEDS ORDERED: SCOPOLAMINE 1.5 MG PATCH T-DERMAL ONE (10:00)
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
[2017-02-01] MEDS ORDERED: MORP4INJ3 IV ×2 (10:53)
[2017-02-01] MEDS ORDERED: ATIV2INJ2 IV ×2 (10:53)
[2017-02-01] MEDS ORDERED: BISA10R RECTAL (10:53)
[2017-02-01] MEDS ORDERED: ACET650R RECTAL (10:53)
[2017-02-01] MEDS ORDERED: ATIV2INJ2 IVS (10:53)
[2017-02-01] MEDS: PHENYTOIN INJ 100 MG/2 ML VIAL IV SCH (10:55)
[2017-02-01] MEDS: levETIRAcetam 1000 MG INJ 100 ML IV SCH (10:55)
[2017-02-01] MEDS: SODIUM CHLORIDE 0.9% FLUSH 10 ML FLUSH IV FLUSH SCH (10:55)
[2017-02-01] MEDS ORDERED: fentaNYL 50 MCG/HR PATCH T-DERMAL SCH (12:00)
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
[2017-02-04] MEDS ORDERED: REMOVE OLD DURAGESIC (FENTANYL) PATCH T-DERMAL SCH (12:00)
== END 2017-02-01 16:09 | disposition hospice, inpatient (51) | DRG 500 ==
LOC: NEPI 20:11 → EDBD 20:28 → NEDA 20:28 → N03A 20:33
PROVIDERS: ADMIT Surgery; ATTEND Surgery
PROC: 5A1955Z Respiratory Ventilation, Greater than 96 Consecutive Hours (ICD-10-PCS; 2017-01-23)
PROC: 00U20JZ Supplement Dura Mater with Synthetic Substitute, Open Approach (ICD-10-PCS; 2017-01-23)
PROC: 00C70ZZ Extirpation of Matter from Cerebral Hemisphere, Open Approach (ICD-10-PCS; 2017-01-23)
PROC: 009600Z Drainage of Cerebral Ventricle with Drainage Device, Open Approach (ICD-10-PCS; 2017-01-23)
PROC: 0NSV04Z Reposition Left Mandible with Internal Fixation Device, Open Approach (ICD-10-PCS; 2017-01-23)
PROC: 00H632Z Insertion of Monitoring Device into Cerebral Ventricle, Percutaneous Approach (ICD-10-PCS; 2017-01-23)
PROC: 4A103BD Monitoring of Intracranial Pressure, Percutaneous Approach (ICD-10-PCS; 2017-01-23)
PROC: 00C40ZZ Extirpation of Matter from Intracranial Subdural Space, Open Approach (ICD-10-PCS; principal; 2017-01-23 21:13)
PROC: 0JD10ZZ Extraction of Face Subcutaneous Tissue and Fascia, Open Approach (ICD-10-PCS; 2017-01-24)
PROC: 0NST04Z Reposition Right Mandible with Internal Fixation Device, Open Approach (ICD-10-PCS; 2017-01-24)
PROC: 0CDXXZ1 Extraction of Lower Tooth, Multiple, External Approach (ICD-10-PCS; 2017-01-24)
PROC: 05H633Z Insertion of Infusion Device into Left Subclavian Vein, Percutaneous Approach (ICD-10-PCS; 2017-01-24)
PROC: B547ZZA Ultrasonography of Left Subclavian Vein, Guidance (ICD-10-PCS; 2017-01-24)
DX: S02.81XB Fracture of other specified skull and facial bones, right side, initial encounter for open fracture (principal); S06.5X6A Traumatic subdural hemorrhage with loss of consciousness greater than 24 hours without return to pre-existing conscious level with patient surviving, initial encounter; J96.00 Acute respiratory failure, unspecified whether with hypoxia or hypercapnia; G40.89 Other seizures; S02.19XB Other fracture of base of skull, initial encounter for open fracture; T79.7XXA Traumatic subcutaneous emphysema, initial encounter; G93.89 Other specified disorders of brain; S06.34 Traumatic hemorrhage of right cerebrum; S02.600A Fracture of unspecified part of body of mandible, unspecified side, initial encounter for closed fracture; Z51.5 Encounter for palliative care; H05.20 Unspecified exophthalmos; R40.2431 Glasgow coma scale score 3-8, in the field [EMT or ambulance]; E04.2 Nontoxic multinodular goiter; E87.6 Hypokalemia; R73.9 Hyperglycemia, unspecified; F12.10 Cannabis abuse, uncomplicated; F02.80 Dementia in other diseases classified elsewhere, unspecified severity, without behavioral disturbance, psychotic disturbance, mood disturbance, and anxiety; F17.210 Nicotine dependence, cigarettes, uncomplicated; Y92.019 Unspecified place in single-family (private) house as the place of occurrence of the external cause; Z66 Do not resuscitate
CPT/HCPCS: 36430; 36556; 70450; 70486; 71010; 72125; 80053; 80185; 80307; 81001; 82435; 82565; 82805; 82947; 82948; 83735; 83930; 84100; 84132; 84295; 84439; 84443; 84481; 84520; 85025; 85384; 85610; 85730; 86850; 86900; 86901; 86920; 93005; 94002; 94003; 94640; 94664; 94770; 95819; C9113; J0131; J0690; J1165; J1580; J1940; J1953; J2060; J2150; J2250; J2270; J3010; J3480; J7030; J7042; J7613; P9016